=== PATIENT | female | born 1985 | race Caucasian/White ===

== ENCOUNTER 2019-10-18 10:52 | Emergency (ER) | payer BC, OTHER ==
--- OUTSIDE RECORDS SUMMARY | 2019-10-18 10:54 | XMS REPORT ---
:1985 Author Organization [facility] Address [address] [place] [address] Dr. Mace [address] [place] [id number] Care Team Providers Name Role Phone Unavailable Unavailable Unavailable Problems This patient has no known problems. Allergies, Adverse Reactions, Alerts This patient has no known allergies or adverse reactions. Medications This patient has no known medications.
[2019-10-18] MEDS ORDERED: LIDOCAINE VISCOUS 2% SOLN 15 ML UDC ONE (11:18)
[2019-10-18] MEDS ORDERED: MAGNE/ALUM HYDROXD 30 ML UCUP ONE (11:18)
[2019-10-18 11:41] LABS: Basophils % 0.2 % (0-1.3); Hematocrit 41.7 % (36.0-45.0); Lymphocytes % 7.1 % (15.3-44.8); MPV 8.3 fL (7.6-11.3); RBC Red Blood Cell Count 4.68 M/uL (3.86-4.86)
[2019-10-18 12:02] LABS: Urine Blood NEGATIVE (NEG); Urine Glucose NEGATIVE (NEG); Urine Protein NEGATIVE (NEG); Urine Specific Gravity 1.025 (1.005-1.030)
[2019-10-18 12:10] LABS: Albumin 3.8 g/dL (3.4-5.0); Bilirubin Total 0.7 mg/dL (0.2-1.0); Potassium 3.9 mmol/L (3.5-5.1)
--- NOTE | 2019-10-18 13:06 | RAD REPORT ---
EXAM DESCRIPTION: CT - Abdomen Pelvis W Contrast - 10/18/2019 12:32 pm CLINICAL HISTORY: ABD PAIN, chest pain, weakness COMPARISON: None. TECHNIQUE: Biphasic, helical CT imaging of the abdomen and pelvis was performed following 100 ml non -ionic IV contrast. No oral contrast was given. All CT scans are performed using dose optimization technique as appropriate and may include automated exposure control or mA/KV adjustment according to patient size. FINDINGS: No suspicious findings in the lung bases. The liver, spleen, and pancreas show no suspicious findings. Gallbladder and biliary tree are also wi thout suspicious finding. Symmetric renal function is seen with no hydronephrosis or suspicious renal mass. No pyelonephritis o r acute parenchymal process. No bladder abnormalities. No adrenal abnormalities. No dilated bowel loops or bowel wall thickening. No free air or pneumatosis. A trace amount of fluid in the cul de sac is present well within physiologic limits. No uterine abnormality seen. Primary ov gage process is not suspected. Ovaries are somewhat obscured by the noncontrast opacified small joni l loops in the pelvis. No mass or bulky lymphadenopathy. A small incidental periumbilical hernia present. No suspicious bony findings. No acute vascular finding. IMPRESSION: Contrast enhanced CT abdomen and pelvis showing no significant or suspicious finding. N onacute findings detailed in the body of the report.
[2019-10-18 13:08] LABS: Blood Morphology Comment NOT SEEN (NOT SEEN); Platelet Estimate ADEQ
--- NOTE | 2019-10-18 13:11 | ER ---
Nurse's Notes [facility] Name: Janelle Barroso Age: 34 yrs Sex: Female : 1985 Arrival Date: 10/18/2019 Time: 10:54 Bed 13 Private MD: Diagnosis: Noninfective gastroenteritis and colitis, unspecified Presentation: 10/18 10:58 Presenting complaint: Patient states: chest pain, heartburn started yesterday and then sv last night generalized weakness started and started feeling "gassy", lightheaded, epigastric pain, headache, diarrhea. Was seen at [facility] and flu was negative, sent here to be evaluated. Transition of care: patient was not received from another setting of care. Onset of symptoms was October 17, 2019. Care prior to arrival: None. 10:58 Method Of Arrival: Ambulatory sv 10:58 Acuity: DANIKA 3 sv 11:31 Risk Assessment: Do you want to hurt yourself or someone else? Patient reports ca1 desire/thoughts of hurting themselves or someone else. Provider notified. Initial Sepsis Screen: Does the patient meet any 2 criteria? No. Patient's initial sepsis screen is negative. Does the patient have a suspected source of infection? No. Patient's initial sepsis screen is negative. 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 - Social history:: Smoking status: Patient/guardian denies using tobacco. - Ebola Screening: : Patient negative for fever greater than or equal to 101.5 degrees Fahrenheit, and additional compatible Ebola Virus Disease symptoms Patient denies exposure to infectious person Patient denies travel to an Ebola-affected area in the 21 days before illness onset No symptoms or risks identified at this time. Screenin:05 Abuse screen: Denies threats or abuse. Denies injuries from another. Nutritional ca1 screening: No deficits noted. Tuberculosis screening: No symptoms or risk factors identified. Fall Risk None identified. Assessment: 11:05 General: Appears in no apparent distress. comfortable, Behavior is calm, cooperative, ca1 appropriate for age. Pain: Complains of pain in epigastric area Pain currently is 3 out of 10 on a pain scale. at worst was 7 out of 10 on a pain scale. Quality of pain is described as gnawing, Pain began 4 hours ago. Is intermittent. Neuro: Level of Consciousness is awake, alert, obeys commands, Oriented to person, place, time, situation, Appropriate for age. Cardiovascular: Heart tones S1 S2 present Capillary refill < 3 seconds Patient's skin is warm and dry. Respiratory: Airway is patent Respiratory effort is even, unlabored, Respiratory pattern is regular, symmetrical, Breath sounds are clear bilaterally. GI: Abdomen is flat, non-distended, Bowel sounds present X 4 quads. Abd is soft and non tender X 4 quads. Reports nausea. : Urine is clear. EENT: No deficits noted. No signs and/or symptoms were reported regarding the EENT system. Derm: Skin is intact, is healthy with good turgor, Skin is pink, warm \\T\\ dry. Musculoskeletal: Circulation, motion, and sensation intact. Capillary refill < 3 seconds. 11:52 Reassessment: Patient appears in no apparent distress at this time. Patient is alert, ca1 oriented x 3, equal unlabored respirations, skin warm/dry/pink. 12:59 Reassessment: Patient appears in no apparent distress at this time. Patient is alert, ca1 oriented x 3, equal unlabored respirations, skin warm/dry/pink. pending CT results. Vital Signs: 10:59 BP 116 / 64; Pulse 95; Resp 18; Temp 98.2(O); Pulse Ox 100% ; Weight 67.13 kg; Height 5 sv ft. 6 in. (167.64 cm); Pain 3/10; 11:52 BP 108 / 75; Pulse 89; Resp 17 S; Pulse Ox 100% on R/A; ca1 12:59 BP 105 / 73; Pulse 85; Resp 17 S; Pulse Ox 98% on R/A; ca1 10:59 Body Mass Index 23.89 (67.13 kg, 167.64 cm) sv ED Course: 10:54 Patient arrived in ED. mr 10:59 Triage completed. sv 11:00 Arm band placed on. sv 11:03 Harriett Mcmanus FNP is PHCP. nh 11:03 Joe Cason MD is Attending Physician. nh 11:05 Patient has correct armband on for positive identification. Placed in gown. Bed in low ca1 position. Call light in reach. Side rails up X 1. Pulse ox on. NIBP on. Warm blanket given. 11:06 Victorina Roberts, RN is Primary Nurse. ca1 11:26 No provider procedures requiring assistance completed. Initial lab(s) drawn, by me, ca1 sent to lab. Inserted saline lock: 22 gauge in right antecubital area, using aseptic technique. Blood collected. 11:28 CBC with Diff Sent. ca1 11:28 CMP Sent. ca1 12:17 Radiology exam delayed due to lab results not completed at this time. (BUN/Creatinine) test not completed at this time. 12:26 CT completed. Patient tolerated procedure well. Patient moved to CT via wheelchair. Patient moved back from CT. 12:33 CT Abd/Pelvis - IV Contrast Only In Process Unspecified. EDMS 13:17 IV discontinued, intact, bleeding controlled, No redness/swelling at site. Pressure ca1 dressing applied. 13:17 EKG done, by bindery library technical assistant. reviewed by Harriett MCGOVERN. at1 Administered Medications: 11:20 Drug: GI Cocktail without - (Maalox Suspension 30 ml, Lidocaine Liquid 2 % 15 ca1 ml) Route: PO; 12:57 Follow up: Response: No adverse reaction; Pain is decreased ca1 Outcome: 13:10 Discharge ordered by MD. ia 13:17 Discharged to home ambulatory. ca1 13:17 Condition: stable 13:17 Discharge instructions given to patient, Instructed on discharge instructions, follow up and referral plans. medication usage, Demonstrated understanding of instructions, follow-up care, medications, Prescriptions given X 1. 13:18 Patient left the ED. ca1 Signatures: Dispatcher [employer] EDMS Veronica De Leon RN RN Harriett Arvizu FNP CRM MARKETING ANALYST ia LucianoAngela Karin Torres, test pilot EKG Tat1 Mirna Mirza Victorina Roberts, RN RN ca1 Corrections: (The following items were deleted from the chart) 11:00 10:58 Presenting complaint: Patient states: chest pain, heartburn started yesterday and sv then last night generalized weakness started and started feeling "gassy", lightheaded, epigastric pain, headache, diarrhea. sv 11:01 10:59 67.13 kg; Height 5 ft. 6 in.; BMI: 23.8; Pain 3/10; sv sv 11:02 10:59 Pulse 95bpm; Resp 18bpm; Pulse Ox 100%; Temp 98.2F Oral; 67.13 kg; Height 5 ft. 6 sv in.; BMI: 23.8; Pain 3/10; sv
--- NOTE | 2019-10-18 13:11 | EDPHYS ---
Physician Documentation [facility] Name: Janelle Barroso Age: 34 yrs Sex: Female : 1985 Arrival Date: 10/18/2019 Time: 10:54 Bed 13 Private MD: ED Physician Joe Cason HPI: 10/18 11:35 This 34 yrs old Female presents to ER via Ambulatory with complaints of nh Abdominal Pain, Nausea, Diarrhea. 11:35 This 34 yrs old Female presents to ER via Ambulatory with complaints of nh Abdominal Pain, Nausea, Diarrhea. 11:35 The patient presents with abdominal pain in the epigastric area. Onset: The nh symptoms/episode began/occurred yesterday. The symptoms radiate to chest. Associated signs and symptoms: Pertinent positives: nausea, vomiting, and diarrhea, chest pain, Pertinent negatives: anorexia, blood in stools, constipation, dysuria, fever, headache, hematuria, palpitations, shortness of breath, vaginal discharge, vomiting blood. The symptoms are described as burning, intermittent. Modifying factors: The symptoms are alleviated by nothing, the symptoms are aggravated by drinking, food. Severity of pain: At its worst the pain was moderate in the emergency department the pain has improved moderately. The patient has not experienced similar symptoms in the past. The patient has not recently seen a physician. The patient has been recently seen by a physician: the patient's primary care provider, earlier today. Family member has stomach virus. . 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 - Social history:: Smoking status: Patient/guardian denies using tobacco. - Ebola Screening: : Patient negative for fever greater than or equal to 101.5 degrees Fahrenheit, and additional compatible Ebola Virus Disease symptoms Patient denies exposure to infectious person Patient denies travel to an Ebola-affected area in the 21 days before illness onset No symptoms or risks identified at this time. ROS: 11:35 Constitutional: Negative for fever, chills, and weight loss, Eyes: Negative for injury, nh pain, redness, and discharge, ENT: Negative for injury, pain, and discharge, Neck: Negative for injury, pain, and swelling, Respiratory: Negative for shortness of breath, cough, wheezing, and pleuritic chest pain, Back: Negative for injury and pain, : Negative for injury, bleeding, discharge, and swelling, MS/Extremity: Negative for injury and deformity, Skin: Negative for injury, rash, and discoloration, Neuro: Negative for headache, weakness, numbness, tingling, and seizure, Psych: Negative for depression, anxiety, suicide ideation, homicidal ideation, and hallucinations. 11:35 Cardiovascular: Positive for chest pain. 11:35 Abdomen/GI: Positive for abdominal pain, nausea, vomiting, and diarrhea, Negative for constipation, abdominal cramps, abdominal distension, anorexia, dysphagia, hematemesis, black/tarry stool, rectal pain, rectal bleeding, bowel incontinence, flatulence. Exam: 11:35 Constitutional: This is a well developed, well nourished patient who is awake, alert, nh and in no acute distress. Head/Face: Normocephalic, atraumatic. Eyes: Pupils equal round and reactive to light, extra-ocular motions intact. Lids and lashes normal. Conjunctiva and sclera are non-icteric and not injected. Cornea within normal limits. Periorbital areas with no swelling, redness, or edema. ENT: Nares patent. No nasal discharge, no septal abnormalities noted. Tympanic membranes are normal and external auditory canals are clear. Oropharynx with no redness, swelling, or masses, exudates, or evidence of obstruction, uvula midline. Mucous membranes moist. Neck: Trachea midline, no thyromegaly or masses palpated, and no cervical lymphadenopathy. Supple, full range of motion without nuchal rigidity, or vertebral point tenderness. No Meningismus. Chest/axilla: Normal chest wall appearance and motion. Nontender with no deformity. No lesions are appreciated. Cardiovascular: Regular rate and rhythm with a normal S1 and S2. No gallops, murmurs, or rubs. Normal PMI, no JVD. No pulse deficits. Respiratory: Lungs have equal breath sounds bilaterally, clear to auscultation and percussion. No rales, rhonchi or wheezes noted. No increased work of breathing, no retractions or nasal flaring. Abdomen/GI: Soft, non-tender, with normal bowel sounds. No distension or tympany. No guarding or rebound. No evidence of tenderness throughout. Back: No spinal tenderness. No costovertebral tenderness. Full range of motion. Skin: Warm, dry with normal turgor. Normal color with no rashes, no lesions, and no evidence of cellulitis. MS/ Extremity: Pulses equal, no cyanosis. Neurovascular intact. Full, normal range of motion. Neuro: Awake and alert, GCS 15, oriented to person, place, time, and situation. Cranial nerves II-XII grossly intact. Motor strength 5/5 in all extremities. Sensory grossly intact. Cerebellar exam normal. Normal gait. Vital Signs: 10:59 BP 116 / 64; Pulse 95; Resp 18; Temp 98.2(O); Pulse Ox 100% ; Weight 67.13 kg; Height 5 sv ft. 6 in. (167.64 cm); Pain 3/10; 11:52 BP 108 / 75; Pulse 89; Resp 17 S; Pulse Ox 100% on R/A; ca1 12:59 BP 105 / 73; Pulse 85; Resp 17 S; Pulse Ox 98% on R/A; ca1 10:59 Body Mass Index 23.89 (67.13 kg, 167.64 cm) sv MDM: 11:03 Patient medically screened. sd 13:09 Data reviewed: vital signs, nurses notes, lab test result(s), radiologic studies, I nh have discussed the patient's presentation/case with the attending Emergency Department Physician; and as a result, I will discharge patient. Counseling: I had a detailed discussion with the patient and/or guardian regarding: the historical points, exam findings, and any diagnostic results supporting the discharge/admit diagnosis, lab results, radiology results, the need for outpatient follow up, to return to the emergency department if symptoms worsen or persist or if there are any questions or concerns that arise at home. 10/18 11:15 Order name: CBC with Diff; Complete Time: 13:08 sd 10/18 11:15 Order name: CMP; Complete Time: 12:14 sd 10/18 11:23 Order name: Urine Dipstick--Ancillary (enter results); Complete Time: 12:14 10/18 11:23 Order name: Urine --Ancillary (enter results); Complete Time: 12:14 10/18 12:14 Order name: CT Abd/Pelvis - IV Contrast Only; Complete Time: 13:08 sd 10/18 13:08 Order name: Manual Differential; Complete Time: 13:08 EDMN 10/18 11:15 Order name: EKG - Nurse/Tech; Complete Time: 11:28 sd 10/18 12:55 Order name: EKG; Complete Time: 12:55 ms Administered Medications: 11:20 Drug: GI Cocktail without - (Maalox Suspension 30 ml, Lidocaine Liquid 2 % 15 ca1 ml) Route: PO; 12:57 Follow up: Response: No adverse reaction; Pain is decreased ca1 Disposition: 13:28 Co-signature as Attending Physician, Joe Cason MD I agree with the assessment and kdr plan of care. Disposition: 10/18/19 13:10 Discharged to Home. Impression: Noninfective gastroenteritis and colitis, unspecified. - Condition is Stable. - Discharge Instructions: Viral Gastroenteritis, Adult. - Prescriptions for Zofran 4 mg Oral Tablet - take 1 tablet by ORAL route every 6 hours As needed; 20 tablet. - Medication Reconciliation Form, Thank You Letter, Antibiotic Education, Prescription Opioid Use form. - Follow up: Private Physician; When: 2 - 3 days; Reason: Recheck today's complaints. - Problem is new. - Symptoms are unchanged. Signatures: Dispatcher [employer] Veronica Sherman, RN CHEYANNE Joe Cason MD MD [facility] Harriett Aguilar, PROFESSIONAL BENEFITS SALES CONSULTANT PROFESSIONAL BENEFITS SALES CONSULTANT sd Victorina Roberts, RN RN ca1 Corrections: (The following items were deleted from the chart) 13:18 13:10 10/18/2019 13:10 Discharged to Home. Impression: Noninfective gastroenteritis and ca1 colitis, unspecified. Condition is Stable. Forms are Medication Reconciliation Form, Thank You Letter, Antibiotic Education, Prescription Opioid Use. Follow up: Private Physician; When: 2 - 3 days; Reason: Recheck today's complaints. Problem is new. Symptoms are unchanged. sd
[2019-10-18 14:26] VITALS: TEMP 98.2
[2019-10-18 14:28] VITALS: BP 105/73; O2SAT 98
--- NOTE | 2019-10-19 14:22 | EKG ---
Test Date: 2019-10-18 Test Time: 13:12:36 Fisheries Technician: ROXANNA MEASUREMENT RESULTS: Intervals: Rate: 81 NM: 138 QRSD: 76 QT: 372 QTc: 432 [place]: P: 52 NM: 138 QRS: 83 T: 31 INTERPRETIVE STATEMENTS: Normal sinus rhythm Nonspecific ST abnormality Abnormal ECG No previous ECG available for comparison Electronically Signed On 10-19-19 14:19:26 RECYCLING CENTER OPERATOR by Jayy Cody
== END 2019-10-18 13:18 | disposition home or self-care (01) ==
LOC: ER 10:52
DX: K52.9 Noninfective gastroenteritis and colitis, unspecified (principal)
CPT/HCPCS: 93005; 85025; 36415; 81025; 81003; 80053; 74177; 99284; Q9967

== ENCOUNTER 2021-07-30 09:46 | Emergency (ER) | payer OTHER ==
--- OUTSIDE RECORDS SUMMARY | 2021-07-30 09:48 | XMS REPORT | Continuity of Care Document ---
:1985 Author Organization [facility] t Address [address] [place] [address] Dr. M[address] [place] [id number] Care Team Providers Name Role Phone Unavailable Unavailable Unavailable Problems This patient has no known problems. Allergies, Adverse Reactions, Alerts This patient has no known allergies or adverse reactions. Medications This patient has no known medications. Procedures This patient has no known procedures. Results This patient has no known results.
[2021-07-30 10:45] LABS: Urine Blood 3+ (Negative); Urine Glucose Negative (Negative); Urine Protein Negative (Negative); Urine Specific Gravity 1.015 (1.005-1.030)
--- NOTE | 2021-07-30 11:02 | RAD REPORT ---
EXAM DESCRIPTION: CT - Head Brain Wo Cont - 07/30/2021 10:51 am CLINICAL HISTORY: DIZZINESS Headache, drowsiness, blurry vision. COMPARISON: No comparisons TECHNIQUE: All CT scans are performed using dose optimization technique as appropriate and may inclu de automated exposure control or mA/KV adjustment according to patient size. FINDINGS: No intracranial hemorrhage, hydrocephalus or extra-axial fluid collection.No areas of brai n edema or evidence of midline shift. Mild mucosal thickening of the left sphenoid sinus. The paranasal sinuses and mastoids are otherwise clear. The calvarium is intact. IMPRESSION: No acute intracranial abnormality.
[2021-07-30] MEDS ORDERED: MECLIZINE HCL 12.5 MG TAB ONE (11:09)
[2021-07-30] MEDS ORDERED: NA CHLORIDE 0.9% 1,000 ML ONE (11:09)
[2021-07-30 11:21] LABS: Absolute Lymphocytes (CBC) 1.5 K/uL (0.7-4.9); Hematocrit 41.9 % (36.0-45.0); Lymphocytes % 23.5 % (15.3-44.8); MPV 11.3 fL (7.6-11.3); RBC Red Blood Cell Count 4.62 M/uL (3.86-4.86)
[2021-07-30 11:33] LABS: ALT/SGPT 22 U/L (12-78); Albumin 4.3 g/dL (3.4-5.0); Alkaline Phosphatase 50 U/L (45-117); BUN Blood Urea Nitrogen 11 mg/dL (7-18); Bicarbonate 28 mmol/L (21-32); Bilirubin Direct 0.2 mg/dL (0-0.2); Bilirubin Total 0.7 mg/dL (0.2-1.0); Glucose Level 80 mg/dL (74-106); Lipase 70 U/L (73-393); Potassium 3.9 mmol/L (3.5-5.1); Protein, Total 8.7 g/dL (6.4-8.2); Sodium Level 140 mmol/L (136-145)
[2021-07-30 11:45] LABS: AST/SGOT < 3 U/L (15-37)
--- NOTE | 2021-07-30 12:10 | EDPHYS ---
Physician Documentation [facility] Name: Janelle Barroso Age: 35 yrs Sex: Female : 1985 Arrival Date: 07/30/2021 Time: 09:46 Bed 10 Private MD: ED Physician Tahir Cutler HPI: 07/30 11:07 This 35 yrs old Female presents to ER via Ambulatory with complaints of ma2 Dizziness. 11:07 The patient presents with dizziness, vertigo. Onset: The symptoms/episode ma2 began/occurred gradually, 1 day(s) ago. Associated signs and symptoms: Pertinent negatives: ataxia, combativeness, diaphoresis, head injury, numbness, palpitations, syncope. Severity of symptoms: At their worst the symptoms were moderate in the emergency department the symptoms are unchanged. Severity of symptoms: in the emergency department the symptoms have resolved. The patient has not experienced similar symptoms in the past. 11:07 had 2 episodes of spinning, that has resolved, has had vertigo in the past . ma2 Historical: - Allergies: 10:06 No Known Allergies; aa5 - PMHx: 10:06 None; aa5 - PSHx: 10:06 None; aa5 - Immunization history:: Client reports having NOT received the Covid vaccine. - Social history:: Smoking status: Reported history of juuling and/or vaping. Patient/guardian denies using alcohol, street drugs, The patient lives with family. - Family history:: not pertinent. - Hospitalizations: : No recent hospitalization is reported. ROS: 11:07 Constitutional: Negative for fever, chills, and weight loss, Cardiovascular: Negative ma2 for chest pain, palpitations, and edema, Respiratory: Negative for shortness of breath, cough, wheezing, and pleuritic chest pain, Abdomen/GI: Negative for abdominal pain, nausea, diarrhea, and constipation, MS/Extremity: Negative for injury and deformity, Skin: Negative for injury, rash, and discoloration, Psych: Negative for depression, anxiety, suicide ideation, homicidal ideation, and hallucinations. 11:07 All other systems are negative. Exam: 11:07 Constitutional: This is a well developed, well nourished patient who is awake, alert, ma2 and in no acute distress. Head/Face: Normocephalic, atraumatic. Eyes: Pupils equal round and reactive to light, extra-ocular motions intact. Lids and lashes normal. Conjunctiva and sclera are non-icteric and not injected. Cornea within normal limits. Periorbital areas with no swelling, redness, or edema. ENT: Nares patent. No nasal discharge, no septal abnormalities noted. Tympanic membranes are normal and external auditory canals are clear. Oropharynx with no redness, swelling, or masses, exudates, or evidence of obstruction, uvula midline. Mucous membranes moist. Neck: Trachea midline, no thyromegaly or masses palpated, and no cervical lymphadenopathy. Supple, full range of motion without nuchal rigidity, or vertebral point tenderness. No Meningismus. Chest/axilla: Normal chest wall appearance and motion. Nontender with no deformity. No lesions are appreciated. Cardiovascular: Regular rate and rhythm with a normal S1 and S2. No gallops, murmurs, or rubs. Normal PMI, no JVD. No pulse deficits. Respiratory: Lungs have equal breath sounds bilaterally, clear to auscultation and percussion. No rales, rhonchi or wheezes noted. No increased work of breathing, no retractions or nasal flaring. Abdomen/GI: Soft, non-tender, with normal bowel sounds. No distension or tympany. No guarding or rebound. No evidence of tenderness throughout. Back: No spinal tenderness. No costovertebral tenderness. Full range of motion. Skin: Warm, dry with normal turgor. Normal color with no rashes, no lesions, and no evidence of cellulitis. MS/ Extremity: Pulses equal, no cyanosis. Neurovascular intact. Full, normal range of motion. Neuro: Awake and alert, GCS 15, oriented to person, place, time, and situation. Cranial nerves II-XII grossly intact. Motor strength 5/5 in all extremities. Sensory grossly intact. Cerebellar exam normal. Normal gait. Vital Signs: 10:04 BP 111 / 90; Pulse 102; Resp 18 S; Temp 98.1(O); Pulse Ox 100% on R/A; Weight 61.69 kg aa5 (R); Height 5 ft. 6 in. (167.64 cm) (R); Pain 0/10; 12:50 BP 117 / 87; Pulse 95; Resp 18; Temp 98.1; Pulse Ox 100% ; bp 10:04 Body Mass Index 21.95 (61.69 kg, 167.64 cm) aa5 MDM: 10:09 Patient medically screened. ma2 11:07 Differential diagnosis: hyperventilation, hypovolemia, idiopathic dizziness, ma2 near-syncope, vertigo. 12:07 Data reviewed: vital signs, nurses notes, EMS record. ma2 12:08 Data reviewed: lab test result(s), radiologic studies. Counseling: I had a detailed ma2 discussion with the patient and/or guardian regarding: the historical points, exam findings, and any diagnostic results supporting the discharge/admit diagnosis, the presence of at least one elevated blood pressure reading (>120/80) during this emergency department visit, the need for outpatient follow up. Medical screen evaluation completed. EMTALA emergency medical condition absent. Response to treatment: the patient's symptoms have markedly improved after treatment. 07/30 10:21 Order name: Basic Metabolic Panel; Complete Time: 11:57 ks2 07/30 10:21 Order name: CBC with Diff; Complete Time: 11:25 ma2 07/30 10:21 Order name: Hepatic Function; Complete Time: 11:57 ma2 07/30 10:21 Order name: Lipase; Complete Time: 11:57 ma2 07/30 10:22 Order name: Head Brain Wo Cont CT; Complete Time: 11:20 ma2 07/30 10:45 Order name: Urine Dipstick-Ancillary; Complete Time: 11:20 EDFL 07/30 10:21 Order name: IV Saline Lock; Complete Time: 11:05 ks2 07/30 10:21 Order name: Labs collected and sent; Complete Time: 11:05 ma2 07/30 10:21 Order name: Urine Dipstick-Ancillary (obtain specimen); Complete Time: 10:39 ma2 Administered Medications: 10:50 Drug: NS 0.9% 1000 ml Route: IV; Rate: 1 bolus; Site: right forearm; bp 12:51 Follow up: IV Status: Completed infusion; IV Intake: 1000ml bp 10:50 Drug: Meclizine 50 mg Route: PO; bp 11:40 Follow up: Response: No adverse reaction; Marked relief of symptoms bp Disposition Summary: 07/30/21 12:08 Discharge Ordered Location: Home ma2 Condition: Stable ma2 Diagnosis - Other peripheral vertigo ma2 Followup: ma2 - With: Private Physician - When: Tomorrow - Reason: Continuance of care Discharge Instructions: - Discharge Summary Sheet ma2 - Benign Positional Vertigo ma2 - Vertigo, [id number] ma2 Forms: - Medication Reconciliation Form ma2 - Thank You Letter ma2 - Antibiotic Education ma2 - Prescription Opioid Use ma2 Prescriptions: - Meclizine 25 mg Oral Tablet - take 1 tablet by ORAL route every 8 hours As needed; 30 tablet; Refills: 0, ma2 Product Selection Permitted Signatures: Dispatcher [employer] Nalini Davies RN RN aa5 Alexei Stout RN RN bp Tahir Cutler MD MD ma2
--- NOTE | 2021-07-30 12:10 | ER ---
Nurse's Notes [facility] Name: Janelle Barroso Age: 35 yrs Sex: Female : 1985 Arrival Date: 07/30/2021 Time: 09:46 Bed 10 Private MD: Diagnosis: Other peripheral vertigo Presentation: 07/30 10:04 Chief complaint: Patient states: "I was driving and I was on a bridge and I got so aa5 dizzy I felt like I was on a roller coaster and then it happened again at work". Pt denies nausea/vomiting. Reports slight headache. Pt reports she tested positive for covid on july 03 but has been feeling better x 2 weeks ago. Coronavirus screen: At this time, the client does not indicate any symptoms associated with coronavirus-19. Ebola Screen: Patient negative for fever greater than or equal to 101.5 degrees Fahrenheit, and additional compatible Ebola Virus Disease symptoms. Initial Sepsis Screen: Does the patient meet any 2 criteria? No. Patient's initial sepsis screen is negative. Does the patient have a suspected source of infection? No. Patient's initial sepsis screen is negative. Risk Assessment: Do you want to hurt yourself or someone else? Patient reports no desire to harm self or others. Onset of symptoms was July 30, 2021. 10:04 Method Of Arrival: Ambulatory aa5 10:04 Acuity: DANIKA 3 aa5 Triage Assessment: 10:13 General: Appears in no apparent distress. comfortable, Behavior is cooperative, bp appropriate for age, anxious. Pain: Denies pain. EENT: No deficits noted. Neuro: Level of Consciousness is awake, alert, obeys commands, Oriented to Appropriate for age Economic Development Coordinator are equal bilaterally Gait is steady, Speech is normal, Reports dizziness, x2 INTERMITTENTLY. Cardiovascular: No deficits noted. Respiratory: No deficits noted. GI: No signs and/or symptoms were reported involving the gastrointestinal system. : No signs and/or symptoms were reported regarding the genitourinary system. Derm: No deficits noted. Musculoskeletal: No deficits noted. Historical: - Allergies: 10:06 No Known Allergies; aa5 - PMHx: 10:06 None; aa5 - PSHx: 10:06 None; aa5 - Immunization history:: Client reports having NOT received the Covid vaccine. - Social history:: Smoking status: Reported history of juuling and/or vaping. Patient/guardian denies using alcohol, street drugs, The patient lives with family. - Family history:: not pertinent. - Hospitalizations: : No recent hospitalization is reported. Screenin:16 Abuse screen: Denies threats or abuse. Denies injuries from another. Nutritional bp screening: No deficits noted. Tuberculosis screening: No symptoms or risk factors identified. Fall Risk None identified. Assessment: 10:16 General: SEE TRIAGE NOTE. bp 12:47 Reassessment: PT D/C HOME AMBULATORY WITH FAMILY, DX WITH BENIGN POSITIONAL VERTIGO. bp Vital Signs: 10:04 BP 111 / 90; Pulse 102; Resp 18 S; Temp 98.1(O); Pulse Ox 100% on R/A; Weight 61.69 kg aa5 (R); Height 5 ft. 6 in. (167.64 cm) (R); Pain 0/10; 12:50 BP 117 / 87; Pulse 95; Resp 18; Temp 98.1; Pulse Ox 100% ; bp 10:04 Body Mass Index 21.95 (61.69 kg, 167.64 cm) aa5 ED Course: 09:46 Patient arrived in ED. as 10:06 Triage completed. aa5 10:06 Arm band placed on. aa5 10:08 Alexei Stout, CHEYANNE is Primary Nurse. bp 10:09 Tahir Cutler MD is Attending Physician. ma2 10:16 Allergy band placed. Bed in low position. Call light in reach. Side rails up X2. bp 10:39 Head Brain Wo Cont CT Sent. bp 10:50 Inserted saline lock: 20 gauge in right forearm, using aseptic technique. Blood bp collected. 10:51 Head Brain Wo Cont CT In Process Unspecified. EDMS 12:49 No provider procedures requiring assistance completed. IV discontinued, intact, bp bleeding controlled, No redness/swelling at site. Pressure dressing applied. Administered Medications: 10:50 Drug: NS 0.9% 1000 ml Route: IV; Rate: 1 bolus; Site: right forearm; bp 12:51 Follow up: IV Status: Completed infusion; IV Intake: 1000ml bp 10:50 Drug: Meclizine 50 mg Route: PO; bp 11:40 Follow up: Response: No adverse reaction; Marked relief of symptoms bp Intake: 12:51 IV: 1000ml; Total: 1000ml. bp Outcome: 12:08 Discharge ordered by MD. oglesby 12:49 Discharged to home ambulatory, with family. bp 12:49 Condition: stable 12:49 Discharge instructions given to patient, family, Instructed on discharge instructions, follow up and referral plans. no driving heavy equipment, medication usage, Demonstrated understanding of instructions, follow-up care, medications, Prescriptions given X 1. 12:52 Patient left the ED. bp Signatures: Dispatcher [employer] Brianne Nelson Audri, RN RN aa5 Alexei Stout RN RN bp Tahir Cutler MD MD ma2 Corrections: (The following items were deleted from the chart) 12:50 12:49 Discharge instructions given to patient, family, Instructed on discharge bp instructions, follow up and referral plans. no driving heavy equipment, medication usage, Demonstrated understanding of instructions, follow-up care, medications, Prescriptions given X 2, bp
[2021-07-30 13:02] VITALS: TEMP 98.1; O2SAT 100
[2021-07-30 13:03] VITALS: BP 117/87
== END 2021-07-30 12:52 | disposition home or self-care (01) ==
LOC: ER 09:46
DX: H81.399 Other peripheral vertigo, unspecified ear (principal)
CPT/HCPCS: 96361; 85025; 80048; 36415; 80076; 81003; 83690; 70450; 96360; 99284; J7030